=== PATIENT | male | born 1955 | race Caucasian/White ===

== ENCOUNTER 2017-06-12 10:42 | Inpatient (IN) | payer BC, OTHER ==
[~2017-06-12] VITALS: Ht 180.3 cm; Wt 80.0 kg
[~2017-06-12 10:42] MED LIST: ASPI325T17 PO; ATOR-2 PO; FURO20TA3 PO; IPRA3AMP NPPB; LISI5TAB7 PO; METO50TA82 PO; NICO-486 TD; POTA20TA14 PO
[2017-06-12] MEDS ORDERED: methylPREDNISolone SOD SUCC 125 MG/2 ML IVP ONE (11:30)
[2017-06-12] MEDS ORDERED: ALBUTEROL/IPRATROPIUM 2.5MG/0.5MG, 3 ML NPPB SCH ×2 (11:30→15:00)
[2017-06-12] MEDS ORDERED: SODIUM CHLORIDE FLUSH 10ML SYR IVF ONE (11:30)
[2017-06-12] MEDS ORDERED: ALBUTEROL/IPRATROPIUM 2.5MG/0.5MG, 3 ML ONE (11:36)
[2017-06-12] MEDS ORDERED: TAMS0.4C2 PO (11:50)
[2017-06-12] MEDS ORDERED: AMLO5TAB4 PO (11:50)
[2017-06-12] MEDS ORDERED: CLOP75TA52 PO (11:50)
[2017-06-12] MEDS ORDERED: METO25TA35 PO (11:50)
[2017-06-12] MEDS ORDERED: TIOT18CA INH (11:50)
[2017-06-12] MEDS ORDERED: BUDE10.2 INH (11:50)
[2017-06-12] MEDS ORDERED: methylPREDNISolone SOD SUCC 125 MG/2 ML ONE (12:06)
[2017-06-12 12:27] LABS: PROTHROMBIN TIME 10.4 Seconds (9.6-11.5)
[2017-06-12 12:31] LABS: ALBUMIN 3.4 g/dL (3.4-5.0); ANION GAP 7 mmol/L (5-15); CALCIUM 7.9 mg/dL (8.5-10.1); CHLORIDE 106 mmol/L (98-107); CREATININE 1.41 mg/dL (0.7-1.3)
[2017-06-12 12:34] LABS: TROPONIN I < 0.015 ng/mL (0.000-0.045)
[2017-06-12 12:46] LABS: MEAN CORPUSCULAR HEMOGLOBIN 32.7 pg (27.5-34.5); MEAN CORPUSCULAR HGB CONC 34.3 g/dL (33.2-36.2); MEAN CORPUSCULAR VOLUME 95.4 fL (81-97); MEAN PLATELET VOLUME 10.2 fL (7.4-10.4); PLATELET COUNT 88 x10^3/uL (130-400); RED BLOOD COUNT 4.52 x10^6/uL (4.38-5.82); RED CELL DISTRIBUTION WIDTH 13.6 % (9.4-14.8)
[2017-06-12 12:47] LABS: BASOPHILS # (AUTO) 0.02 x10^3/uL (0-0.1); BASOPHILS % (AUTO) 0 % (0-1); EOSINOPHILS % (AUTO) 0 % (1-7); LYMPHOCYTES # (AUTO) 0.87 x10^3/uL (1-3.4); LYMPHOCYTES % (AUTO) 16 % (22-44); MD SCAN; MONOCYTES % (AUTO) 11 % (2-9); NEUTROPHILS # (AUTO) 4.06 x10^3/uL (1.8-6.8); NEUTROPHILS % (AUTO) 73 % (42-75)
[2017-06-12] MEDS ORDERED: SODIUM CHLORIDE FLUSH 10ML SYR IVF PRN (13:30)
[2017-06-12] MEDS ORDERED: NS + 20MEQ KCL 1,000 ML IV SCH (13:38)
[2017-06-12] MEDS ORDERED: ONDANSETRON 2MG/ML, 2ML IVPush PRN (14:00)
[2017-06-12] MEDS ORDERED: DOCUSATE 100 MG CAPSULE PO PRN (14:00)
[2017-06-12] MEDS ORDERED: BISACODYL 10 MG SUPP PR PRN (14:00)
[2017-06-12] MEDS ORDERED: ACETAMINOPHEN 325 MG TABLET PO PRN (14:00)
[2017-06-12] MEDS ORDERED: POLYETHYLENE GLYCOL 17 GM PACKET PO PRN (14:00)
[2017-06-12] MEDS ORDERED: ENALAPRILAT 1.25 MG/ML, 2ML IVPush PRN (14:00)
[2017-06-12] MEDS: HEPARIN 5,000 UNITS/ML, 1ML SQ SCH (17:36)
[2017-06-12] MEDS: methylPREDNISolone SOD SUCC 125 MG/2 ML IVPush SCH ×2 (17:36→23:57)
[2017-06-12] MEDS: DOXYCYCLINE 100 MG in DEXTROSE 5% 250 ML IV SCH (17:37)
[2017-06-12] MEDS: ALBUTEROL/IPRATROPIUM 2.5MG/0.5MG, 3 ML NPPB SCH ×2 (18:00→22:00)
[2017-06-12] MEDS: CEFTRIAXONE 1,000 MG in DEXTROSE 5% 50 ML IV SCH (19:53)
[2017-06-12 20:43] VITALS: BP 118/65
[2017-06-12] MEDS: GUAIFENESIN ER 600 MG TABLET PO SCH (20:59)
[2017-06-12] MEDS: ATORVASTATIN 80 MG TABLET PO SCH (20:59)
[2017-06-13] MEDS: HEPARIN 5,000 UNITS/ML, 1ML SQ SCH ×3 (02:01→17:31)
[2017-06-13] MEDS: ALBUTEROL/IPRATROPIUM 2.5MG/0.5MG, 3 ML NPPB SCH ×6 (02:15→22:32)
[2017-06-13 02:29] VITALS: BP 152/78
[2017-06-13 05:42] LABS: MEAN CORPUSCULAR HEMOGLOBIN 33.1 pg (27.5-34.5); MEAN CORPUSCULAR HGB CONC 34.4 g/dL (33.2-36.2); MEAN CORPUSCULAR VOLUME 96.2 fL (81-97); RED BLOOD COUNT 4.36 x10^6/uL (4.38-5.82); RED CELL DISTRIBUTION WIDTH 13.6 % (9.4-14.8)
[2017-06-13 05:57] LABS: ANION GAP 7 mmol/L (5-15); CALCIUM 8.1 mg/dL (8.5-10.1); CHLORIDE 109 mmol/L (98-107)
[2017-06-13 05:58] LABS: CREATININE 1.27 mg/dL (0.7-1.3)
[2017-06-13] MEDS: DOXYCYCLINE 100 MG in DEXTROSE 5% 250 ML IV SCH ×2 (06:04→17:31)
[2017-06-13] MEDS: methylPREDNISolone SOD SUCC 125 MG/2 ML IVPush SCH ×4 (06:05→23:41)
[2017-06-13 06:27] LABS: BASOPHILS # (AUTO) 0.01 x10^3/uL (0-0.1); BASOPHILS % (AUTO) 0 % (0-1); EOSINOPHILS % (AUTO) 0 % (1-7); LYMPHOCYTES # (AUTO) 0.45 x10^3/uL (1-3.4); LYMPHOCYTES % (AUTO) 14 % (22-44); MD SCAN; MEAN PLATELET VOLUME 10.7 fL (7.4-10.4); MONOCYTES # (AUTO) 0.12 x10^3/uL (0.2-0.8); MONOCYTES % (AUTO) 4 % (2-9); NEUTROPHILS # (AUTO) 2.69 x10^3/uL (1.8-6.8); NEUTROPHILS % (AUTO) 82 % (42-75); PLATELET COUNT 75 x10^3/uL (130-400)
[2017-06-13 07:57] VITALS: BP 142/61
[2017-06-13] MEDS: TEMPLATE NON-FORMULARY MED. (Budesonide/Formoterol Fumarate (Symbicort 160-4.5 Mcg Inhaler INH SCH (09:00)
[2017-06-13] MEDS ORDERED: TEMPLATE NON-FORMULARY MED. (Tiotropium Bromide** (Spiriva**) 18 MCG) INH SCH (09:00)
[2017-06-13] MEDS: TAMSULOSIN 0.4 MG CAP.ER.24H PO SCH (09:49)
[2017-06-13] MEDS: AMLODIPINE 5 MG TABLET PO SCH (09:49)
[2017-06-13] MEDS: CLOPIDOGREL 75 MG TABLET PO SCH (09:49)
[2017-06-13] MEDS: METOPROLOL TARTRATE 25 MG TABLET PO SCH (09:49)
[2017-06-13] MEDS: GUAIFENESIN ER 600 MG TABLET PO SCH ×2 (09:50→20:17)
[2017-06-13] MEDS: NICOTINE 14MG/24 HR PATCH.TD24 TD SCH (10:27)
[2017-06-13] MEDS: INSULIN ASPART 100 UNITS/ML, PEN SQ-INSULIN SCH ×3 (11:24→20:19)
[2017-06-13 13:48] VITALS: BP 142/75
[2017-06-13 19:36] VITALS: BP 128/73
[2017-06-13] MEDS: ATORVASTATIN 80 MG TABLET PO SCH (20:17)
[2017-06-13] MEDS: CEFTRIAXONE 1,000 MG in DEXTROSE 5% 50 ML IV SCH (20:18)
[2017-06-14 01:19] VITALS: BP 147/70
[2017-06-14] MEDS: HEPARIN 5,000 UNITS/ML, 1ML SQ SCH (02:25)
[2017-06-14 05:46] LABS: CHLORIDE 110 mmol/L (98-107)
[2017-06-14] MEDS: methylPREDNISolone SOD SUCC 125 MG/2 ML IVPush SCH ×3 (05:50→18:11)
[2017-06-14] MEDS: DOXYCYCLINE 100 MG in DEXTROSE 5% 250 ML IV SCH ×2 (05:50→18:11)
[2017-06-14 05:58] LABS: MEAN CORPUSCULAR HEMOGLOBIN 31.9 pg (27.5-34.5); MEAN CORPUSCULAR HGB CONC 33.6 g/dL (33.2-36.2); MEAN CORPUSCULAR VOLUME 94.8 fL (81-97); RED BLOOD COUNT 4.23 x10^6/uL (4.38-5.82); RED CELL DISTRIBUTION WIDTH 13.5 % (9.4-14.8)
[2017-06-14 06:00] LABS: ALANINE AMINOTRANSFERASE 27 U/L (12-78); ALBUMIN 3.2 g/dL (3.4-5.0); ALKALINE PHOSPHATASE 45 U/L (45-117); ANION GAP 7 mmol/L (5-15); BILIRUBIN,TOTAL 0.4 mg/dL (0.2-1.0); CALCIUM 8.6 mg/dL (8.5-10.1); CREATININE 1.04 mg/dL (0.7-1.3)
[2017-06-14 06:23] LABS: MEAN PLATELET VOLUME 10.7 fL (7.4-10.4); PLATELET COUNT 68 x10^3/uL (130-400)
[2017-06-14 06:34] LABS: BASOPHILS % (AUTO) 0 % (0-1); EOSINOPHILS % (AUTO) 0 % (1-7); LYMPHOCYTES % (AUTO) 7 % (22-44); MD SCAN; MONOCYTES # (AUTO) 0.43 x10^3/uL (0.2-0.8); MONOCYTES % (AUTO) 5 % (2-9); NEUTROPHILS # (AUTO) 7.71 x10^3/uL (1.8-6.8); NEUTROPHILS % (AUTO) 88 % (42-75)
[2017-06-14] MEDS: ALBUTEROL/IPRATROPIUM 2.5MG/0.5MG, 3 ML NPPB SCH ×4 (06:41→20:00)
[2017-06-14 07:45] VITALS: BP 163/80
[2017-06-14] MEDS: INSULIN ASPART 100 UNITS/ML, PEN SQ-INSULIN SCH ×4 (07:58→20:57)
[2017-06-14] MEDS: GUAIFENESIN ER 600 MG TABLET PO SCH ×2 (07:59→19:43)
[2017-06-14] MEDS: CLOPIDOGREL 75 MG TABLET PO SCH (08:00)
[2017-06-14] MEDS: TEMPLATE NON-FORMULARY MED. (Budesonide/Formoterol Fumarate (Symbicort 160-4.5 Mcg Inhaler INH SCH (08:00)
[2017-06-14] MEDS: AMLODIPINE 5 MG TABLET PO SCH (08:00)
[2017-06-14] MEDS: METOPROLOL TARTRATE 25 MG TABLET PO SCH (08:00)
[2017-06-14] MEDS: TAMSULOSIN 0.4 MG CAP.ER.24H PO SCH (08:00)
[2017-06-14] MEDS: NICOTINE 14MG/24 HR PATCH.TD24 TD SCH (10:03)
[2017-06-14 13:00] VITALS: BP 138/74
[2017-06-14 14:00] VITALS: BP 138/74
[2017-06-14 19:14] VITALS: BP 143/68
[2017-06-14] MEDS: ATORVASTATIN 80 MG TABLET PO SCH (19:43)
[2017-06-14] MEDS: CEFTRIAXONE 1,000 MG in SODIUM CHLORIDE 0.9% 50 ML IV SCH (19:44)
[2017-06-15] MEDS: methylPREDNISolone SOD SUCC 125 MG/2 ML IVPush SCH ×4 (00:10→17:55)
[2017-06-15 02:45] VITALS: BP 157/70
[2017-06-15] MEDS: DOXYCYCLINE 100 MG in DEXTROSE 5% 250 ML IV SCH ×2 (05:55→18:25)
[2017-06-15] MEDS: ALBUTEROL/IPRATROPIUM 2.5MG/0.5MG, 3 ML NPPB SCH ×4 (07:00→18:53)
[2017-06-15 07:10] VITALS: BP 154/77
[2017-06-15] MEDS: TEMPLATE NON-FORMULARY MED. (Budesonide/Formoterol Fumarate (Symbicort 160-4.5 Mcg Inhaler INH SCH (09:00)
[2017-06-15] MEDS: INSULIN ASPART 100 UNITS/ML, PEN SQ-INSULIN SCH ×4 (09:17→21:18)
[2017-06-15] MEDS: METOPROLOL TARTRATE 25 MG TABLET PO SCH (09:18)
[2017-06-15] MEDS: TAMSULOSIN 0.4 MG CAP.ER.24H PO SCH (09:18)
[2017-06-15] MEDS: AMLODIPINE 5 MG TABLET PO SCH (09:18)
[2017-06-15] MEDS: GUAIFENESIN ER 600 MG TABLET PO SCH ×2 (09:18→21:07)
[2017-06-15] MEDS: CLOPIDOGREL 75 MG TABLET PO SCH (09:18)
[2017-06-15] MEDS: NICOTINE 14MG/24 HR PATCH.TD24 TD SCH (09:19)
[2017-06-15 13:35] VITALS: BP 145/67
[2017-06-15 19:31] VITALS: BP 159/78
[2017-06-15] MEDS: CEFTRIAXONE 1,000 MG in SODIUM CHLORIDE 0.9% 50 ML IV SCH (21:06)
[2017-06-15] MEDS: ATORVASTATIN 80 MG TABLET PO SCH (21:07)
[2017-06-16] MEDS: methylPREDNISolone SOD SUCC 125 MG/2 ML IVPush SCH ×5 (00:25→23:54)
[2017-06-16 01:52] VITALS: BP 159/70
[2017-06-16] MEDS: DOXYCYCLINE 100 MG in DEXTROSE 5% 250 ML IV SCH ×2 (06:37→18:18)
[2017-06-16 07:25] VITALS: BP 166/72
[2017-06-16] MEDS: ALBUTEROL/IPRATROPIUM 2.5MG/0.5MG, 3 ML NPPB SCH ×4 (08:40→19:50)
[2017-06-16] MEDS: CLOPIDOGREL 75 MG TABLET PO SCH (08:49)
[2017-06-16] MEDS: AMLODIPINE 5 MG TABLET PO SCH (08:49)
[2017-06-16] MEDS: GUAIFENESIN ER 600 MG TABLET PO SCH ×2 (08:50→20:49)
[2017-06-16] MEDS: TEMPLATE NON-FORMULARY MED. (Budesonide/Formoterol Fumarate (Symbicort 160-4.5 Mcg Inhaler INH SCH (08:50)
[2017-06-16] MEDS: TAMSULOSIN 0.4 MG CAP.ER.24H PO SCH (08:50)
[2017-06-16] MEDS: METOPROLOL TARTRATE 25 MG TABLET PO SCH (08:50)
[2017-06-16] MEDS: INSULIN ASPART 100 UNITS/ML, PEN SQ-INSULIN SCH ×4 (08:51→20:59)
[2017-06-16] MEDS: NICOTINE 14MG/24 HR PATCH.TD24 TD SCH (08:52)
[2017-06-16 13:30] VITALS: BP 158/73
[2017-06-16 14:00] VITALS: BP 140/80
[2017-06-16] MEDS ORDERED: OMNIPAQUE 350 MG/ML, 100ML BOTTLE ONE (18:00)
[2017-06-16 19:04] VITALS: BP 149/83
[2017-06-16] MEDS: CEFTRIAXONE 1,000 MG in SODIUM CHLORIDE 0.9% 50 ML IV SCH (20:49)
[2017-06-16] MEDS: ATORVASTATIN 80 MG TABLET PO SCH (20:49)
[2017-06-17 01:17] VITALS: BP 148/70
[2017-06-17] MEDS: methylPREDNISolone SOD SUCC 125 MG/2 ML IVPush SCH ×4 (06:02→23:21)
[2017-06-17] MEDS: DOXYCYCLINE 100 MG in DEXTROSE 5% 250 ML IV SCH ×2 (06:03→18:07)
[2017-06-17] MEDS: ALBUTEROL/IPRATROPIUM 2.5MG/0.5MG, 3 ML NPPB SCH ×4 (07:30→19:40)
[2017-06-17 07:50] VITALS: BP 146/71
[2017-06-17] MEDS: GUAIFENESIN ER 600 MG TABLET PO SCH ×2 (08:03→20:35)
[2017-06-17] MEDS: METOPROLOL TARTRATE 25 MG TABLET PO SCH (08:03)
[2017-06-17] MEDS: TAMSULOSIN 0.4 MG CAP.ER.24H PO SCH (08:03)
[2017-06-17] MEDS: CLOPIDOGREL 75 MG TABLET PO SCH (08:03)
[2017-06-17] MEDS: AMLODIPINE 5 MG TABLET PO SCH (08:03)
[2017-06-17] MEDS: INSULIN ASPART 100 UNITS/ML, PEN SQ-INSULIN SCH ×4 (08:05→20:36)
[2017-06-17] MEDS: TEMPLATE NON-FORMULARY MED. (Budesonide/Formoterol Fumarate (Symbicort 160-4.5 Mcg Inhaler INH SCH (08:05)
[2017-06-17] MEDS: NICOTINE 14MG/24 HR PATCH.TD24 TD SCH (12:25)
[2017-06-17 13:05] VITALS: BP 132/55
[2017-06-17] MEDS: ATORVASTATIN 80 MG TABLET PO SCH (20:35)
[2017-06-17] MEDS: CEFTRIAXONE 1,000 MG in SODIUM CHLORIDE 0.9% 50 ML IV SCH (20:36)
[2017-06-17 20:40] VITALS: BP 139/64
[2017-06-18 00:08] VITALS: BP 149/66
[2017-06-18] MEDS: DOXYCYCLINE 100 MG in DEXTROSE 5% 250 ML IV SCH ×2 (05:53→18:18)
[2017-06-18] MEDS: methylPREDNISolone SOD SUCC 125 MG/2 ML IVPush SCH ×3 (05:54→20:03)
[2017-06-18] MEDS: CLOPIDOGREL 75 MG TABLET PO SCH (08:35)
[2017-06-18] MEDS: INSULIN ASPART 100 UNITS/ML, PEN SQ-INSULIN SCH ×4 (08:35→20:05)
[2017-06-18] MEDS: GUAIFENESIN ER 600 MG TABLET PO SCH ×2 (08:35→20:02)
[2017-06-18] MEDS: AMLODIPINE 5 MG TABLET PO SCH (08:35)
[2017-06-18] MEDS: TAMSULOSIN 0.4 MG CAP.ER.24H PO SCH (08:36)
[2017-06-18 08:57] VITALS: BP 152/64
[2017-06-18] MEDS: TEMPLATE NON-FORMULARY MED. (Budesonide/Formoterol Fumarate (Symbicort 160-4.5 Mcg Inhaler INH SCH (09:00)
[2017-06-18] MEDS: METOPROLOL TARTRATE 25 MG TABLET PO SCH (09:00)
[2017-06-18] MEDS: GLIMEPIRIDE 4 MG TABLET PO SCH (09:55)
[2017-06-18 13:52] VITALS: BP 142/71
[2017-06-18] MEDS: NICOTINE 14MG/24 HR PATCH.TD24 TD SCH (14:04)
[2017-06-18 19:32] VITALS: BP 137/56
[2017-06-18] MEDS ORDERED: CEFTRIAXONE 1,000 MG in DEXTROSE 5% 50 ML IV SCH (20:00)
[2017-06-18] MEDS: ATORVASTATIN 80 MG TABLET PO SCH (20:02)
[2017-06-19] MEDS: methylPREDNISolone SOD SUCC 125 MG/2 ML IVPush SCH ×2 (02:07→08:30)
[2017-06-19 02:09] VITALS: BP 136/65
[2017-06-19] MEDS: DOXYCYCLINE 100 MG in DEXTROSE 5% 250 ML IV SCH (06:17)
[2017-06-19 07:01] VITALS: BP 145/68
[2017-06-19] MEDS ORDERED: GUAI600T31 PO (07:50)
[2017-06-19] MEDS ORDERED: PRED10TA PO (07:50)
[2017-06-19] MEDS ORDERED: IPRA3AMP NPPB (07:50)
[2017-06-19] MEDS ORDERED: NICO-486 TD (07:50)
[2017-06-19] MEDS ORDERED: GLIM1TAB PO ×2 (07:50→08:30)
[2017-06-19] MEDS ORDERED: CEFD300C37 PO (07:50)
[2017-06-19] MEDS ORDERED: DOXY100C15 PO (07:50)
[2017-06-19] MEDS: INSULIN ASPART 100 UNITS/ML, PEN SQ-INSULIN SCH ×2 (08:30→12:00)
[2017-06-19] MEDS ORDERED: TIOT18CA INH (08:31)
[2017-06-19] MEDS: AMLODIPINE 5 MG TABLET PO SCH (08:31)
[2017-06-19] MEDS: GLIMEPIRIDE 4 MG TABLET PO SCH (08:31)
[2017-06-19] MEDS: CLOPIDOGREL 75 MG TABLET PO SCH (08:31)
[2017-06-19] MEDS: TAMSULOSIN 0.4 MG CAP.ER.24H PO SCH (08:31)
[2017-06-19] MEDS ORDERED: BUDE10.2 INH (08:31)
[2017-06-19] MEDS: GUAIFENESIN ER 600 MG TABLET PO SCH (08:31)
[2017-06-19] MEDS: METOPROLOL TARTRATE 25 MG TABLET PO SCH (08:32)
[2017-06-19] MEDS: TEMPLATE NON-FORMULARY MED. (Budesonide/Formoterol Fumarate (Symbicort 160-4.5 Mcg Inhaler INH SCH (08:49)
[2017-06-19] MEDS ORDERED: ALBUTEROL/IPRATROPIUM 2.5MG/0.5MG, 3 ML NPPB PRN (11:00)
[2017-06-19] MEDS ORDERED: DOXYCYCLINE 100MG TABLET PO SCH (21:00)
== END 2017-06-19 13:57 | disposition home health service (06) | DRG 189 ==
LOC: ED 13:11 → EDIP 13:12 → ED 14:10 → 3NE 14:38 → DCLOUNGE 06-19 13:32
PROVIDERS: ADMIT Internal Medicine; ATTEND Internal Medicine
DX: J96.01 Acute respiratory failure with hypoxia (principal); N17.0 Acute kidney failure with tubular necrosis; I69.354 Hemiplegia and hemiparesis following cerebral infarction affecting left non-dominant side; J44.0 Chronic obstructive pulmonary disease with (acute) lower respiratory infection; J44.1 Chronic obstructive pulmonary disease with (acute) exacerbation; D69.6 Thrombocytopenia, unspecified; I11.9 Hypertensive heart disease without heart failure; E78.5 Hyperlipidemia, unspecified; F17.210 Nicotine dependence, cigarettes, uncomplicated; I25.10 Atherosclerotic heart disease of native coronary artery without angina pectoris; J20.9 Acute bronchitis, unspecified; T38.0X5A Adverse effect of glucocorticoids and synthetic analogues, initial encounter; Z66 Do not resuscitate; Z82.49 Family history of ischemic heart disease and other diseases of the circulatory system; Z95.5 Presence of coronary angioplasty implant and graft; Z83.3 Family history of diabetes mellitus; Z90.89 Acquired absence of other organs; Z80.9 Family history of malignant neoplasm, unspecified
CPT/HCPCS: 36415; 71046; 71275; 80048; 80053; 82040; 82962; 83605; 83880; 84484; 85025; 85610; 85730; 87040; 87205; 93005; 94640; 96374; J0696; J1644; J1815; J3480; J7060; J7620; Q9967; J2930

== ENCOUNTER 2017-06-26 13:44 | Emergency (ER) | payer OTHER ==
[~2017-06-26] VITALS: Ht 180.3 cm; Wt 84.0 kg
[~2017-06-26 13:44] MED LIST changes: +AMLO5TAB4 PO; +BUDE10.2 INH; +CEFD300C37 PO; +CLOP75TA52 PO; +DOXY100C15 PO; +GLIM1TAB PO; +GUAI600T31 PO; +METO25TA35 PO; +PRED10TA PO; +TAMS0.4C2 PO; +TIOT18CA INH
[2017-06-26 14:22] LABS: INTERNATIONAL NORMALIZED RATIO 0.99 (0.93-1.1); PROTHROMBIN TIME 10.3 Seconds (9.6-11.5)
[2017-06-26 14:26] LABS: ALANINE AMINOTRANSFERASE 51 U/L (12-78); ALBUMIN 2.9 g/dL (3.4-5.0); CALCIUM 8.6 mg/dL (8.5-10.1); CREATININE 1.19 mg/dL (0.7-1.3)
[2017-06-26 14:46] LABS: ALKALINE PHOSPHATASE 41 U/L (45-117); ANION GAP 7 mmol/L (5-15); BILIRUBIN,TOTAL 0.7 mg/dL (0.2-1.0); CHLORIDE 107 mmol/L (98-107); TOTAL PROTEIN 5.4 g/dL (6.4-8.2); TROPONIN I 0.019 ng/mL (0.000-0.045)
[2017-06-26 14:49] LABS: BASOPHILS # (AUTO) 0.02 x10^3/uL (0-0.1); BASOPHILS % (AUTO) 0 % (0-1); EOSINOPHILS # (AUTO) 0.01 x10^3/uL (0-0.4); EOSINOPHILS % (AUTO) 0 % (1-7); LYMPHOCYTES # (AUTO) 0.57 x10^3/uL (1-3.4); LYMPHOCYTES % (AUTO) 3 % (22-44); MD SCAN; MEAN CORPUSCULAR HEMOGLOBIN 32.2 pg (27.5-34.5); MEAN CORPUSCULAR HGB CONC 33.4 g/dL (33.2-36.2); MEAN CORPUSCULAR VOLUME 96.5 fL (81-97); MEAN PLATELET VOLUME 9.8 fL (7.4-10.4); MONOCYTES # (AUTO) 0.28 x10^3/uL (0.2-0.8); MONOCYTES % (AUTO) 2 % (2-9); NEUTROPHILS # (AUTO) 15.57 x10^3/uL (1.8-6.8); NEUTROPHILS % (AUTO) 95 % (42-75); PLATELET COUNT 80 x10^3/uL (130-400); RED BLOOD COUNT 4.34 x10^6/uL (4.38-5.82); RED CELL DISTRIBUTION WIDTH 13.8 % (9.4-14.8)
[2017-06-26 15:57] VITALS: BP 153/73
== END 2017-06-26 15:59 | disposition home or self-care (01) ==
LOC: ED 14:12
DX: I50.9 Heart failure, unspecified (principal); R60.9 Edema, unspecified
CPT/HCPCS: 36415; 71045; 80053; 83880; 84484; 85025; 85610; 85730; 93005; 99285

== ENCOUNTER → 2017-11-14 | Outpatient (CLI) | payer OTHER | END | disposition home or self-care (01) | LOC: CVU 13:46 | PROVIDERS: ATTEND Physician Assistant | DX: I65.22 Occlusion and stenosis of left carotid artery (principal); I34.0 Nonrheumatic mitral (valve) insufficiency; I11.0 Hypertensive heart disease with heart failure; I50.22 Chronic systolic (congestive) heart failure; E78.5 Hyperlipidemia, unspecified; F17.210 Nicotine dependence, cigarettes, uncomplicated; Z86.73 Personal history of transient ischemic attack (TIA), and cerebral infarction without residual deficits | CPT/HCPCS: 93306; 93880 ==

== ENCOUNTER → 2018-01-31 | Outpatient (CLI) | payer OTHER ==
[~2018-01-31] MED LIST changes: -IPRA3AMP NPPB; +IPRA3AMP30 NPPB
== END | disposition home or self-care (01) ==
LOC: CVU 06:52
PROVIDERS: ATTEND Internal Medicine Cardiovascular Disease
DX: I73.9 Peripheral vascular disease, unspecified (principal); R53.1 Weakness; I10 Essential (primary) hypertension; I25.10 Atherosclerotic heart disease of native coronary artery without angina pectoris; Z86.73 Personal history of transient ischemic attack (TIA), and cerebral infarction without residual deficits
CPT/HCPCS: 93922; 93970

== ENCOUNTER 2019-01-29 09:14 | Outpatient (CLI) | payer MEDICARE, OTHER | END 2019-01-29 23:59 | disposition home or self-care (01) | LOC: CVU 09:14 | PROVIDERS: ATTEND Internal Medicine Cardiovascular Disease | DX: I65.23 Occlusion and stenosis of bilateral carotid arteries (principal); I10 Essential (primary) hypertension; E78.5 Hyperlipidemia, unspecified; Z86.73 Personal history of transient ischemic attack (TIA), and cerebral infarction without residual deficits | CPT/HCPCS: 93880 ==

== ENCOUNTER 2019-06-24 01:56 | Inpatient (IN) | payer MEDICARE ==
[~2019-06-24] VITALS: Ht 170.2 cm; Wt 91.1 kg
[2019-06-24] MEDS ORDERED: DIPH,PERTUSS(ACELL),TET VAC/PF 0.5 ML IM-VACC ONE ×2 (02:22→02:30)
--- NOTE | 2019-06-24 02:30 | NUR ---
BIB [facility]. O2 REMOVED FOR RA SAT. 80% SPO2 ON RA. PT PLACED BACK ON 2L. SPO2 92%
[2019-06-24 02:34] LABS: BASOPHILS # (AUTO) 0.06 x10^3/uL (0-0.1); BASOPHILS % (AUTO) 1 % (0-1); EOSINOPHILS # (AUTO) 0.06 x10^3/uL (0-0.4); EOSINOPHILS % (AUTO) 1 % (1-7); LYMPHOCYTES % (AUTO) 20 % (22-44); MD NO; MEAN CORPUSCULAR HEMOGLOBIN 33.6 pg (27.5-34.5); MEAN CORPUSCULAR HGB CONC 33.5 g/dL (33.2-36.2); MEAN CORPUSCULAR VOLUME 100.4 fL (81-97); MEAN PLATELET VOLUME 10.6 fL (7.4-10.4); MONOCYTES # (AUTO) 0.64 x10^3/uL (0.2-0.8); MONOCYTES % (AUTO) 6 % (2-9); NEUTROPHILS # (AUTO) 7.61 x10^3/uL (1.8-6.8); NEUTROPHILS % (AUTO) 73 % (42-75); PLATELET COUNT 125 x10^3/uL (130-400); RED BLOOD COUNT 4.81 x10^6/uL (4.38-5.82); RED CELL DISTRIBUTION WIDTH 13.6 % (9.4-14.8)
[2019-06-24 02:45] LABS: ALANINE AMINOTRANSFERASE 27 U/L (12-78); ALBUMIN 3.8 g/dL (3.4-5.0); ANION GAP 9 mmol/L (5-15); CALCIUM 8.9 mg/dL (8.5-10.1); CHLORIDE 110 mmol/L (98-107); CREATININE 1.66 mg/dL (0.7-1.3)
[2019-06-24 02:47] LABS: ALKALINE PHOSPHATASE 60 U/L (45-117); BILIRUBIN,TOTAL 0.7 mg/dL (0.2-1.0); TOTAL PROTEIN 6.5 g/dL (6.4-8.2)
--- NOTE | 2019-06-24 02:55 | NUR ---
HEAD LAC CLEANED BY PA. SUPERFICIAL 2 CM LAC ON SCALP. COVERED WITH BANDAID.
[2019-06-24] MEDS ORDERED: ONDANSETRON 2MG/ML, 2ML IVPush PRN (03:30)
[2019-06-24] MEDS ORDERED: ONDANSETRON ODT 4 MG PO PRN (03:30)
[2019-06-24] MEDS ORDERED: ACETAMINOPHEN 325 MG TABLET PO PRN (03:30)
[2019-06-24] MEDS ORDERED: hydrALAzine 20 MG/ML, 1ML IVPush PRN (03:30)
[2019-06-24] MEDS ORDERED: LORazepam 2 MG/ML, 1ML IV PRN ×5 (03:30)
[2019-06-24] MEDS ORDERED: PROMETHAZINE 25 MG/ML, 1ML IM PRN (03:30)
[2019-06-24] MEDS ORDERED: LORazepam 0.5MG TABLET PO PRN (03:30)
[2019-06-24] MEDS ORDERED: ALBUTEROL/IPRATROPIUM 2.5MG/0.5MG, 3 ML NPPB PRN (03:30)
[2019-06-24] MEDS ORDERED: LORazepam 1MG TABLET PO PRN ×4 (03:30)
[2019-06-24] MEDS ORDERED: OXYcodone IR 5MG TABLET PO PRN (03:30)
--- NOTE | 2019-06-24 03:31 | NUR ---
RPT CALLED TO [facility]. PT READY FOR TRANSFER.
[2019-06-24 04:15] LABS: FREE T4 (FREE THYROXINE) 1.06 ng/dL (0.76-1.46)
[2019-06-24 04:27] VITALS: BP 119/70
[2019-06-24 04:31] VITALS: BP 119/70
[2019-06-24] MEDS: NICOTINE 14MG/24 HR PATCH.TD24 TD SCH (04:43)
[2019-06-24] MEDS: HEPARIN 5,000 UNITS/ML, 1ML SQ SCH ×3 (04:43→20:35)
[2019-06-24] MEDS: SODIUM CHLORIDE 0.9% 1,000 ML IV SCH ×3 (04:44→23:57)
[2019-06-24] MEDS: INSULIN LISPRO 100 UNITS/ML, PEN SQ-INSULIN SCH ×4 (07:00→21:00)
[2019-06-24 07:20] VITALS: BP 105/59
[2019-06-24] MEDS: ALBUTEROL/IPRATROPIUM 2.5MG/0.5MG, 3 ML NPPB SCH ×3 (07:37→22:07)
[2019-06-24] MEDS: BUDESONIDE 0.5 MG/2 ML INHA NPPB SCH ×2 (07:38→22:07)
[2019-06-24] MEDS ORDERED: TEMPLATE NON-FORMULARY MED. (Tiotropium Bromide** (Spiriva**) 18 MCG) INH SCH (09:00)
[2019-06-24] MEDS: MULTIVITAMIN 1 TABLET PO SCH (09:21)
[2019-06-24] MEDS: METOPROLOL TARTRATE 25 MG TABLET PO SCH ×2 (09:21→20:36)
[2019-06-24] MEDS: TAMSULOSIN 0.4 MG CAP.ER.24H PO SCH (09:21)
[2019-06-24] MEDS: CLOPIDOGREL 75 MG TABLET PO SCH (09:21)
[2019-06-24 11:36] LABS: MICROSCOPIC AUTO
[2019-06-24 11:47] LABS: CULTURE INDICATED? NO
[2019-06-24 13:12] VITALS: BP 125/65
[2019-06-24] MEDS ORDERED: ERGOCALCIFEROL 50,000 UNIT CAPSULE PO SCH (17:30)
[2019-06-24] MEDS: methylPREDNISolone SOD SUCC 125 MG/2 ML IVPush SCH ×2 (18:11→23:58)
[2019-06-24] MEDS: ATORVASTATIN 80 MG TABLET PO SCH (20:35)
[2019-06-24 20:38] VITALS: BP 120/68
[2019-06-25] MEDS: ALBUTEROL/IPRATROPIUM 2.5MG/0.5MG, 3 ML NPPB SCH ×4 (03:00→20:06)
[2019-06-25 03:09] VITALS: BP 125/61
[2019-06-25] MEDS: NICOTINE 14MG/24 HR PATCH.TD24 TD SCH (04:02)
[2019-06-25] MEDS: HEPARIN 5,000 UNITS/ML, 1ML SQ SCH ×3 (04:02→20:44)
[2019-06-25 05:55] LABS: ALANINE AMINOTRANSFERASE 28 U/L (12-78); ALBUMIN 3.2 g/dL (3.4-5.0); ANION GAP 6 mmol/L (5-15); CHLORIDE 115 mmol/L (98-107)
[2019-06-25 05:59] LABS: ALKALINE PHOSPHATASE 55 U/L (45-117); BILIRUBIN,TOTAL 0.8 mg/dL (0.2-1.0); CHOLESTEROL, TOTAL 114 mg/dL (140-239); HDL CHOL % 50 % (26-37); HDL CHOLESTEROL (DIRECT) 57 mg/dL (40-60); LDL CHOLESTEROL,CALCULATED 46 mg/dL (54-169); LDL/HDL RATIO 0.8 (0.5-3.0); TOTAL PROTEIN 5.5 g/dL (6.4-8.2); TRIGLYCERIDES 54 mg/dL (50-200); VLDL CHOLESTEROL 11 mg/dL (0-25)
[2019-06-25] MEDS: methylPREDNISolone SOD SUCC 125 MG/2 ML IVPush SCH ×3 (06:13→17:36)
[2019-06-25] MEDS: SODIUM CHLORIDE 0.9% 1,000 ML IV SCH ×3 (06:13→22:20)
[2019-06-25 06:23] LABS: MD SCAN; MEAN CORPUSCULAR HEMOGLOBIN 33.4 pg (27.5-34.5); MEAN CORPUSCULAR HGB CONC 33.1 g/dL (33.2-36.2); MEAN CORPUSCULAR VOLUME 100.8 fL (81-97); RED BLOOD COUNT 4.35 x10^6/uL (4.38-5.82); RED CELL DISTRIBUTION WIDTH 13.6 % (9.4-14.8)
[2019-06-25 06:24] LABS: BASOPHILS # (AUTO) 0.01 x10^3/uL (0-0.1); BASOPHILS % (AUTO) 0 % (0-1); EOSINOPHILS % (AUTO) 0 % (1-7); LYMPHOCYTES # (AUTO) 0.61 x10^3/uL (1-3.4); LYMPHOCYTES % (AUTO) 11 % (22-44); MEAN PLATELET VOLUME 10.8 fL (7.4-10.4); MONOCYTES # (AUTO) 0.02 x10^3/uL (0.2-0.8); MONOCYTES % (AUTO) 0 % (2-9); NEUTROPHILS % (AUTO) 88 % (42-75); PLATELET COUNT 92 x10^3/uL (130-400)
[2019-06-25] MEDS: INSULIN LISPRO 100 UNITS/ML, PEN SQ-INSULIN SCH ×4 (07:00→20:47)
[2019-06-25 07:39] VITALS: BP 125/58
[2019-06-25] MEDS: BUDESONIDE 0.5 MG/2 ML INHA NPPB SCH ×2 (08:00→20:06)
[2019-06-25] MEDS: MULTIVITAMIN 1 TABLET PO SCH (09:00)
[2019-06-25] MEDS: TAMSULOSIN 0.4 MG CAP.ER.24H PO SCH (09:21)
[2019-06-25] MEDS: CLOPIDOGREL 75 MG TABLET PO SCH (09:21)
[2019-06-25] MEDS: METOPROLOL TARTRATE 25 MG TABLET PO SCH ×2 (09:22→20:43)
[2019-06-25 13:32] VITALS: BP 124/64
[2019-06-25 20:17] VITALS: BP 156/68
[2019-06-25] MEDS: ATORVASTATIN 80 MG TABLET PO SCH (20:43)
[2019-06-26] MEDS: methylPREDNISolone SOD SUCC 125 MG/2 ML IVPush SCH ×5 (00:45→23:54)
[2019-06-26 01:34] VITALS: BP 139/72
[2019-06-26] MEDS: ALBUTEROL/IPRATROPIUM 2.5MG/0.5MG, 3 ML NPPB SCH ×4 (03:18→19:23)
[2019-06-26] MEDS: HEPARIN 5,000 UNITS/ML, 1ML SQ SCH ×3 (04:01→21:22)
[2019-06-26] MEDS: NICOTINE 14MG/24 HR PATCH.TD24 TD SCH (04:03)
[2019-06-26] MEDS: SODIUM CHLORIDE 0.9% 1,000 ML IV SCH ×2 (05:22→12:44)
[2019-06-26 06:03] LABS: ALANINE AMINOTRANSFERASE 32 U/L (12-78); ALBUMIN 3.2 g/dL (3.4-5.0); ANION GAP 6 mmol/L (5-15); CHLORIDE 117 mmol/L (98-107); CREATININE 0.98 mg/dL (0.7-1.3)
[2019-06-26 06:06] LABS: ALKALINE PHOSPHATASE 50 U/L (45-117); BILIRUBIN,TOTAL 0.5 mg/dL (0.2-1.0); TOTAL PROTEIN 5.6 g/dL (6.4-8.2)
[2019-06-26] MEDS: INSULIN LISPRO 100 UNITS/ML, PEN SQ-INSULIN SCH ×4 (07:00→21:23)
[2019-06-26 07:30] VITALS: BP 134/69
[2019-06-26] MEDS: CLOPIDOGREL 75 MG TABLET PO SCH (08:17)
[2019-06-26] MEDS: MULTIVITAMIN 1 TABLET PO SCH (08:17)
[2019-06-26] MEDS: METOPROLOL TARTRATE 25 MG TABLET PO SCH ×2 (08:17→21:22)
[2019-06-26] MEDS: TAMSULOSIN 0.4 MG CAP.ER.24H PO SCH (08:17)
[2019-06-26] MEDS: BUDESONIDE 0.5 MG/2 ML INHA NPPB SCH ×2 (08:37→19:23)
[2019-06-26 12:02] VITALS: BP 153/74
[2019-06-26 21:16] VITALS: BP 148/69
[2019-06-26] MEDS: ATORVASTATIN 80 MG TABLET PO SCH (21:22)
[2019-06-27 00:28] VITALS: BP 155/66
[2019-06-27] MEDS: ALBUTEROL/IPRATROPIUM 2.5MG/0.5MG, 3 ML NPPB SCH ×3 (01:29→13:51)
[2019-06-27] MEDS: NICOTINE 14MG/24 HR PATCH.TD24 TD SCH (06:16)
[2019-06-27] MEDS: methylPREDNISolone SOD SUCC 125 MG/2 ML IVPush SCH ×3 (06:16→18:16)
[2019-06-27] MEDS: HEPARIN 5,000 UNITS/ML, 1ML SQ SCH ×2 (06:16→14:00)
[2019-06-27] MEDS: BUDESONIDE 0.5 MG/2 ML INHA NPPB SCH (06:43)
[2019-06-27] MEDS: INSULIN LISPRO 100 UNITS/ML, PEN SQ-INSULIN SCH ×3 (07:00→16:00)
[2019-06-27 07:45] VITALS: BP 167/75
[2019-06-27] MEDS: METOPROLOL TARTRATE 25 MG TABLET PO SCH (08:56)
[2019-06-27] MEDS: CLOPIDOGREL 75 MG TABLET PO SCH (08:56)
[2019-06-27] MEDS: TAMSULOSIN 0.4 MG CAP.ER.24H PO SCH (08:56)
[2019-06-27] MEDS: MULTIVITAMIN 1 TABLET PO SCH (08:56)
[2019-06-27] MEDS ORDERED: IPRA3AMP30 NPPB (10:01)
[2019-06-27] MEDS ORDERED: NICO-486 TD (10:01)
[2019-06-27] MEDS ORDERED: PRED10TA PO (10:01)
[2019-06-27] MEDS ORDERED: ERGO500017 PO (10:01)
[2019-06-27 13:07] VITALS: BP 155/74
== END 2019-06-27 18:31 | disposition home health service (06) | DRG 682 ==
LOC: ED 02:27 → EDIP 02:51 → 4NE 04:09 → 3N 06-26 13:40
PROVIDERS: ADMIT Internal Medicine; ATTEND Internal Medicine
DX: N17.0 Acute kidney failure with tubular necrosis (principal); J96.00 Acute respiratory failure, unspecified whether with hypoxia or hypercapnia; I69.354 Hemiplegia and hemiparesis following cerebral infarction affecting left non-dominant side; F10.129 Alcohol abuse with intoxication, unspecified; N40.0 Benign prostatic hyperplasia without lower urinary tract symptoms; E11.9 Type 2 diabetes mellitus without complications; E55.9 Vitamin D deficiency, unspecified; E78.00 Pure hypercholesterolemia, unspecified; E78.5 Hyperlipidemia, unspecified; E86.0 Dehydration; F17.210 Nicotine dependence, cigarettes, uncomplicated; I10 Essential (primary) hypertension; I25.10 Atherosclerotic heart disease of native coronary artery without angina pectoris; I34.0 Nonrheumatic mitral (valve) insufficiency; J43.9 Emphysema, unspecified; S01.01XA Laceration without foreign body of scalp, initial encounter; W18.30XA Fall on same level, unspecified, initial encounter; Y93.89 Activity, other specified; Y92.89 Other specified places as the place of occurrence of the external cause; Y99.8 Other external cause status; Z95.5 Presence of coronary angioplasty implant and graft; Z83.3 Family history of diabetes mellitus; Z82.49 Family history of ischemic heart disease and other diseases of the circulatory system
CPT/HCPCS: 36415; 70450; 70486; 71045; 72125; 80053; 80061; 80307; 81001; 82306; 82607; 82728; 82962; 83036; 83540; 83550; 83735; 84100; 84439; 84443; 84466; 85025; 90471; 90715; 94640; G0378; J1644; J7620; J7626; J1815; J2060; J2930; J7030